=== PATIENT | female | born 1970 | race Caucasian/White ===

== ENCOUNTER 2017-11-04 12:26 | Emergency (ER) | payer OTHER ==
[~2017-11-04] VITALS: Ht 163 cm; Wt 58.1 kg
[2017-11-04 13:25] LABS: ABSOLUTE BASOPHIL COUNT 0.1 /CUMM (0.0-0.2); ABSOLUTE EOSINOPHIL COUNT 0 /CUMM (0.0-0.7); ABSOLUTE GRANULOCYTE CT 10.4 /CUMM (1.4-6.5); ABSOLUTE LYMPH COUNT 1.8 /CUMM (1.2-3.4); ABSOLUTE MONOCYTE COUNT 0.7 /CUMM (0.10-0.60); BASOPHIL % 0.5 % (0.0-2.0); EOSINOPHIL % 0.4 % (0-5); GRANULOCYTE % 80.5 % (42.2-75.2); HEMATOCRIT 40.7 % (37-47); MEAN CORPUSCULAR HGB 32.2 PG (27.0-31.0); MEAN CORPUSCULAR HGB CONC 34.2 G/DL (33.0-37.0); MEAN CORPUSCULAR VOLUME 94.2 FL (81.0-99.0); MEAN PLATELET VOLUME 9.7 FL (7.4-10.4); PLATELET COUNT 287 /CUMM (130-400); RED BLOOD CELL CT 4.32 /CUMM (4.20-5.40); WHITE BLOOD CELL COUNT 12.9 /CUMM (4.8-10.8)
[2017-11-04] MEDS ORDERED: AUGMENTIN 875-1 EACH PO (15:30)
--- NOTE | 2017-11-04 15:31 | ED SKIN/ALLERGY COMPLAINT ---
History of Present Illness General Chief Complaint: Skin Rash/ Abcess Stated Complaint: "INFECTION ON CHIN FROM SCRATCHING" Source: patient Exam Limitations: no limitations Vital Signs & Intake/Output Vital Signs & Intake/Output Vital Signs Date Time Temp Pulse Resp B/P B/P Pulse O2 O2 Flow FiO2 Mean Ox Delivery Rate 11/04 1508 120 11/04 1455 97.8 135 18 130/76 98 Room Air 11/04 1442 Room Air 11/04 1258 98.0 148 16 160/93 99 Room Air Room Air Allergies Coded Allergies: No Known Allergies (11/04/17) Reconcile Medications Amoxicillin/Potassium Clav (Augmentin 875-125 Tablet) 875 MG-125 MG TABLET 1 TAB PO BID FACIAL INFECTION Triage Note: PT TO TRIAGE FOR SWELLING STEPHANY THE RIGHT SIDE OF HER FACE. PT PICKS AT HER FACE DUE TO A PAST SERGERY AND SHE FEELS LIKE THERE SUTURES LEFT IN THERE. Triage Nurses Notes Reviewed? yes Onset: Gradual Duration: day(s):, constant, changing over time, continues in ED, getting worse Severity: moderate, severe Location: face (RIGHT SIDE) HPI: Patient presents for evaluation of a possible right facial infection. Patient states that she had an abscess incised and drained by a plastic surgeon. Since then she states she has been "digging" at the wound and felt she might even have stitches in there that she removed. She denies fever or cold symptoms. Past History Travel History Traveled to [place] past 21 day No Medical History Any Pertinent Medical History? see below for history Neurological: migraine EENT: NONE Cardiovascular: NONE Respiratory: NONE Gastrointestinal: NONE Hepatic: NONE Renal: NONE Musculoskeletal: NONE Psychiatric: anxiety Endocrine: NONE Blood Disorders: NONE Cancer(s): NONE [employer]/Reproductive: NONE Surgical History Surgical History: SEE hpi Psychosocial History What is your primary language Tajik Tobacco Use: Never used ETOH Use: denies use Illicit Drug Use: denies illicit drug use Family History Hx Contributory? No Review of Systems Review of Systems Constitutional: Reports: no symptoms. EENTM: Reports: no symptoms. Respiratory: Reports: no symptoms. Cardiovascular: Reports: no symptoms. GI: Reports: no symptoms. Genitourinary: Reports: no symptoms. Musculoskeletal: Reports: no symptoms. Skin: Reports: see HPI. Neurological/Psychological: Reports: no symptoms. Hematologic/Endocrine: Reports: no symptoms. Immunologic/Allergic: Reports: no symptoms. All Other Systems: Reviewed and Negative Physical Exam Physical Exam General Appearance: SEE BELOW Comments: Gen.: Well-nourished, well-developed, no acute respiratory distress. Head: Normocephalic, atraumatic. Eyes: Normal inspection bilaterally Ears: Normal inspection bilaterally Nose: Normal inspection Throat/mouth : Moist mucosa , no submental induration Neck: Supple, full range of motion, no goiter Lungs: Quiet respirations Back: Normal range of motion Extremities: Normal range of motion grossly, no cyanosis clubbing or edema of the upper extremities Neurologic: Cranial nerves grossly intact, speech is clear Skin: warm and dry, 2 cm open wound over the right anterior mandible with surrounding erythema. There is purulence in the base of the wound. There is no fluctuance. Psychiatric: Calm, cooperative, no apparent delusions or hallucinations Progress Differential Diagnosis: abscess/cellulitis, contact dermatitis Plan of Care: Orders Procedure Date/time Status [facility] SED RATE 11/04 1257 Complete C-REACTIVE PROTEIN 11/04 1257 Complete CBC WITHOUT DIFFERENTIAL 11/04 1257 Complete BASIC METABOLIC PANEL 11/04 1257 Complete EKG 11/04 1257 Active Laboratory Tests 11/04/17 1300: Anion Gap 7, Estimated GFR > 60, BUN/Creatinine Ratio 5.7 L, Glucose 123 H, Calcium 9.9, C-Reactive Prot, Quant 0.5, CBC w Diff NO MAN DIFF REQ, RBC 4.32, MCV 94.2, MCH 32.2 H, MCHC 34.2, RDW 13.0, MPV 9.7, Gran % 80.5 H, Lymphocytes % 13.5 L, Monocytes % 5.1, Eosinophils % 0.4, Basophils % 0.5, Absolute Granulocytes 10.4 H, Absolute Lymphocytes 1.8, Absolute Monocytes 0.7 H, Absolute Eosinophils 0, Absolute Basophils 0.1, [facility] 12 Departure Departure Disposition: HOME OR SELF CARE Condition: Stable Clinical Impression Primary Impression: Facial cellulitis Referrals: Yoly FIELD,Addy Mg (PCP/Family) Additional Instructions: Daily dressing changes to your right facial wound. Augmentin as prescribed for possible wound infection. Follow-up with primary care physician 48-72 hours for reevaluation. Return if any concerns or sudden worsening. Thank you for choosing the [facility] for your care. It was a pleasure to serve you today. Johnny Bhat M.D. [facility] Departure Forms: Customer Survey General Discharge Information Prescriptions: Current Visit Scripts Amoxicillin/Potassium Clav (Augmentin 875-125 Tablet) 1 TAB PO BID #20 TAB
== END 2017-11-04 15:37 ==
LOC: ERH 12:26
PROVIDERS: Physician Assistant Medical
DX: L03.211 Cellulitis of face (principal)
CPT/HCPCS: 93005; 93010